=== PATIENT | female | born 2000 | race Caucasian/White ===

== ENCOUNTER 2025-06-01 16:33 | Inpatient (IN) | payer OTHER ==
[~2025-06-01] VITALS: Ht 154.9 cm; Wt 54.9 kg
[~2025-06-01 16:33] MED LIST: METHOCARBAMOL500 MG PO; NOVOLOG100 UNIT/2 SUB-Q; PROPRANOLOL HCL80 MG PO
[2025-06-01 16:49] LABS: MCH 31.9 PG (25.6-32.2); MCHC 33.1 g/dL (32.2-35.5); MCV 96.5 fL (79.4-94.8); RBC 5.39 M/uL (3.93-5.22)
[2025-06-01] MEDS ORDERED: SODIUM CHLORIDE 0.9% 1,000 ML IV PRN ×2 (17:00→17:30)
[2025-06-01 17:09] LABS: ALT (SGPT) 23 U/L (14-59); AST (SGOT) 11 U/L (15-37); GLOMERULAR FILTRATION RATE,EST 63 mL/min (>60); PROTEIN, TOTAL 8.9 g/dL (6.4-8.2); UREA NITROGEN 18 mg/dL (7-18)
[2025-06-01 17:15] LABS: BANDS, MANUAL DIFF 16; LYMPHOCYTES, MANUAL DIFF 15; MONOCYTES, MANUAL DIFF 5; NEUTROPHILS, MANUAL DIFF 64
[2025-06-01] MEDS ORDERED: Insulin Regular 100 Unit/100 Ml Bag IV SCH (17:30)
[2025-06-01] MEDS ORDERED: DEXTROSE 5% - NACL 0.45% 1,000 ML IV SCH (17:30)
[2025-06-01] MEDS ORDERED: INSULIN REGULAR IN 0.9 % NACL 100 ML IV SCH (18:00)
[2025-06-01] MEDS ORDERED: LACTATED RINGER'S 1,000 ML IV ONE ×2 (18:00→23:00)
[2025-06-01] MEDS ORDERED: GLUCAGON,HUMAN RECOMBINANT 1 MG/ML VIAL SUB-Q PRN (18:00)
[2025-06-01] MEDS ORDERED: LACTATED RINGER'S 1,000 ML IV SCH (18:00)
[2025-06-01] MEDS ORDERED: IBLOOD GLUCOSE TEST STRIP 1 EA TEST VI SCH ×2 (18:00→21:00)
[2025-06-01] MEDS ORDERED: DEXTROSE 50% 50 ML SYR IV PRN ×2 (18:00)
[2025-06-01] MEDS ORDERED: ACETAMINOPHEN 325 MG TAB PO PRN (18:00)
[2025-06-01] MEDS ORDERED: IBLOOD GLUCOSE TEST STRIP 1 EA TEST XX PRN (18:00)
[2025-06-01] MEDS ORDERED: DEXTROSE 5% 1,000 ML IV PRN (18:00)
[2025-06-01] MEDS ORDERED: SODIUM BICARBONATE 50 MEQ/50 ML SYR IV SCH (18:15)
[2025-06-01 18:20] LABS: GLOMERULAR FILTRATION RATE,EST 84 mL/min (>60); UREA NITROGEN 19 mg/dL (7-18)
[2025-06-01 20:00] VITALS: BP 126/90
--- NOTE | 2025-06-01 20:00 | NUR ---
TELEPHONE REPORT GIVEN BY ED NURSE, RAYMOND, PATIENT ARRIVED VIA STRETCHER WITH GEAR HOBBER SET UP OPERATOR. PATIENT ABLE TO AMBULATE TO COMMODE FROM STRETCHER. 300ML URINE OUT, CLEAR YELLOW. PATIENT ARRIVED WITH INSULIN GTT IN LEFT AC WITH LR INFUSING. PATIENT ARRIVED WITH HEART MONITOR IN PLACE. ORIENTED TO ROOM, CALL LIGHT AND DEPARTMENT. PATIENT ASSESSMENT COMPLETE AND DOCUMENT. SHE REPORTED 4/10 PAIN IN BACK AND THROAT. PATIENT STATED "MY THROAT HAS BEEN HURTING FROM PUKING SO MUCH RECENTLY" PATIENT HAS A PRODUCTIVE COUGH WITH SMALL AMMOUNTS OF THIN WHITE SPUTUM, SHE STATED "I HAVE BEEN COUGHING THIS UP EVER SINCE I STARTED PUKING, I THINK IT'S FROM MY SORE THROAT". PATIENT IS NOT REQUESTING PAIN MEDICATIONS AT THIS TIME. DURING ADMISSION PATIENT MENTIONED HAVING A HX OF "HOSHIMOTOS AND CRPS" PATIENT HAS TWO VISITORS IN THE ROOM AT THIS TIME. CALL LIGHT AND PERSONAL BELONGINGS ARE WITHIN REACH. PATIENT HAS BEEN CONTINUING TO ASK FOR MULTIPLE WARM BLANKETS, SHE IS AFEBRILE AND STATED "I ALWAYS COLD AND BUNDLED UP AT HOME"
[2025-06-01 20:28] VITALS: BP 125/90
[2025-06-01 21:00] VITALS: BP 130/96
[2025-06-01 22:00] VITALS: BP 136/93
[2025-06-01 22:27] LABS: GLOMERULAR FILTRATION RATE,EST 101.0 mL/min (>60); UREA NITROGEN 15.0 mg/dL (7-18)
[2025-06-01] MEDS ORDERED: SODIUM BICARBONATE 50 MEQ/50 ML VIAL IV ONE (23:00)
[2025-06-02] VITALS (14 sets, daily range): BP systolic 100–145; BP diastolic 61–130
[2025-06-02 00:11] LABS: BLOOD/HGB, URINE TRACE-I (Negative); KETONE, URINE >=80 (Negative); LEUK ESTERASE, URINE NEGATIVE (negative); NITRITE, URINE NEGATIVE (negative)
[2025-06-02 00:16] LABS: EPITHELIAL CELLS, URINE SQUAMOUS 2+ /lpf (0-1+)
[2025-06-02 00:17] LABS: BACTERIA, URINE RARE /hpf (negative); CASTS, URINE GRANULAR 2+ \\lpf; CRYSTALS, URINE NONE SEEN (0-1+); REFLEX CULTURE, URINE No (No)
--- NOTE | 2025-06-02 03:13 | NUR ---
IN TO DRAW BLOOD FROM SALINE LOCK. PT REMAINS SLEEPING DURING BLOOD DRAW, RESP EVEN AND UNLABORED, HR 100'S. BLOOD SUGAR DONE, INSULIN DRIP TITRATED ACCORDINGLY.
[2025-06-02 03:24] LABS: GLOMERULAR FILTRATION RATE,EST 97.0 mL/min (>60); UREA NITROGEN 12.0 mg/dL (7-18)
[2025-06-02] MEDS ORDERED: POTASSIUM CHLORIDE 10 MEQ/100 ML BAG IV SCH (04:00)
[2025-06-02 06:22] LABS: BASOPHILS 0.5 % (0.1-1.2); EOSINOPHILS 0.1 % (0.7-5.8); LYMPHOCYTES 13.6 % (19.3-51.7); MCH 32.7 PG (25.6-32.2); MCHC 36.9 g/dL (32.2-35.5); MCV 88.7 fL (79.4-94.8); MONOCYTES 12.8 % (4.7-12.5); NEUTROPHILS 72.0 % (34.0-71.1); RBC 3.88 M/uL (3.93-5.22)
[2025-06-02 06:33] LABS: ALT (SGPT) 14.0 U/L (14-59); AST (SGOT) 8.0 U/L (15-37); GLOMERULAR FILTRATION RATE,EST 97.0 mL/min (>60); PROTEIN, TOTAL 5.9 g/dL (6.4-8.2); UREA NITROGEN 11.0 mg/dL (7-18)
--- NOTE | 2025-06-02 06:34 | NUR ---
PATIENT LABS INDICATED ANION GAP DECREASING WITH BICARB INCREASING, DR. AUSTIN UPDATED VIA TELEPHONE. ORDERED 1 LITER LR BOLUS AND 1 AMPULE OF BICARB. THIS RN ORDERED MEDICATIONS WITH PRECEPTOR, TIFFANY. POTASSIUM WAS 2.7, 60 MEQ ORDERED PER ELECTROLYTE REPLACEMENT PROTOCOL. CURRENTLY INFUSING BAG 3 OF 6. AM LABS DRAWN BY THIS RN AND SENT. CALL LIGHT AND PERSONAL BELONGINGS ARE WITHIN REACH. TWO VISITORS SLEEPING ON COUCH.
[2025-06-02] MEDS ORDERED: MAGNESIUM SULFATE 2 GM/50 ML BAG IV ONE ×2 (07:00→08:30)
--- NOTE | 2025-06-02 07:12 | NUR ---
REVIEWED LABS AND PLAN OF CARE WITH . ORDERS CHANGED PER VERBAL ORDER; VIEIFED WITH REPEAT BACK.
[2025-06-02] MEDS ORDERED: IBLOOD GLUCOSE TEST STRIP 1 EA TEST VI SCH (08:00)
[2025-06-02] MEDS ORDERED: Insulin Regular, Human 100 UNIT/ML ML SUB-Q SCH (08:00)
--- NOTE | 2025-06-02 08:20 | NUR ---
PT RESTING IN BED AND COMPLAINS OF NAUSEA, PRN ZOFRAN ADMINISTERED PER REQUEST. IV SITE ASSESSED R/T COMPLAINTS OF PAIN, PATENT, SWITCHED K+ INFUSION TO OTHER SITE. PT IS NOT INTERESTED IN BREAKFAST AT THIS TIME, NAUSEATED, SS INSULIN HELD. MOTHER AT BEDSIDE, CALL LIGHT IN REACH.
[2025-06-02] MEDS ORDERED: PANTOPRAZOLE SODIUM 40 MG/10 ML VIAL IV SCH (09:00)
[2025-06-02] MEDS ORDERED: ELECTROLTYTE REPLACEMEMT CCU 1 EACH EA PO/IV SCH (09:00)
--- NOTE | 2025-06-02 09:32 | NUR ---
ROUNDING ON PT - IV SITE PAIN WNL, NO REQUESTS AT THIS TIME. CALL LIGHT IN REACH.
--- NOTE | 2025-06-02 10:03 | NUR ---
PATIENT LAYING IN BED. VITAL SIGNS AND I&OS WERE DONE. CALL LIGHT IS WITHIN REACH AND NO FURTHER NEEDS AT THIS TIME.
--- NOTE | 2025-06-02 10:43 | NUR ---
UR CLINICAL REVIEW: MCG-PER MCG REVIEW MEETS INPT FOR DM WITH NEED FOR IV HYDRATION, INSULIN DRIP AND SERIAL LABS [facility] INPT 06/01/25 @ 1801 ORDER MATCHES REG CLINICALS FAXED TO [facility] FOR AUTH REVIEW DISCHARGE TO HOME WHEN STABLE DC REVIEW 06/03/25
[2025-06-02 11:12] LABS: GLOMERULAR FILTRATION RATE,EST 117.0 mL/min (>60); UREA NITROGEN 10.0 mg/dL (7-18)
[2025-06-02] MEDS ORDERED: PHARMACY RENAL DOSE ADJUSTMENT 1 DOSE MISC PO SCH (12:00)
--- NOTE | 2025-06-02 12:29 | NUR ---
SS INSULIN ADMINISTERED PER EMAR - PT REQUESTING FOOD FROM OUTSIDE HOSPITAL, VERY KNOWLEDGABLE AND TRUSTWORTHY ON CARB COUNTING. PT AGREES TO 60G CARB AND WILL COMMUNICATE HER INTAKE.
--- NOTE | 2025-06-02 13:44 | NUR ---
SLEEPING AT THIS TIME. SPOKE WITH RN. PATIENT'S MOTHER HAS BEEN IN ROOM AND VERY ATTENTIVE. NO KNOWN CM NEEDS. PATIENT WILL DC TO HOME WHEN MEDICALLY READY.
--- NOTE | 2025-06-02 14:22 | NUR ---
PT WITHOUT NAUSEA WITH FOOD INTAKE. PT REQUESTS TO REMAIN ON Q2 CHECKS AND REQUESTS TO INCREASE SS TO HIGH DOSE TO BETTER CONTROL HER CBGS. SHE STATES SHE WOULD LIKE TO BE UNDER 200, CLOSER TO HER BASELINE OF 150-180. PLAN REVIEWED WITH MD. CHANGES IN ORDERS ENTERED. LABS DRAWN FOR RIGHT AC SITE WITHOUT DIFFICULTY. PT IN GOOD SPIRITS AND RESTING BETWEEN CARES.
[2025-06-02 14:52] LABS: GLOMERULAR FILTRATION RATE,EST 108.0 mL/min (>60); UREA NITROGEN 10.0 mg/dL (7-18)
[2025-06-02] MEDS ORDERED: POTASSIUM CHLORIDE 40 MEQ,LIDOCAINE HCL 1% 40 MG in DEXTROSE 5% 250 ML IV ONE (15:15)
[2025-06-02] MEDS ORDERED: HYDROXYZINE PAM25 MG PO (16:48)
--- NOTE | 2025-06-02 16:48 | NUR ---
MED REC COMPLETE
--- NOTE | 2025-06-02 18:15 | NUR ---
CBG 161, PT NOT PLANNING TO EAT DINNER UNTIL CLOSER TO 8PM WITH BOYFRIEND, REQUESTS TO HOLD SS AT THIS TIME TO PREVENT TOO LOW.
--- NOTE | 2025-06-02 20:00 | NUR ---
EVENING ASSESSMENT COMPLETE AND DOCUMENTED IN CHART, RECEIVED REPORT FROM MERCEDES MCNALLY. IV POTASSIUM INFUSING IN RIGHT AC, PATIENT RATED 4/10 PAIN IN IV. HOT PACK GIVEN WITH 1 HOUR LEFT OF INFUSION. PATIENT DENIED OFFER TO SLOW DOWN THE INFUSION OR DILUTE IT WITH IV FLUIDS RUNNING CONCURRENTLY. PATIENT EATING DINNER BROUGHT TO HOSPITAL BY HER BOYFRIEND, SHE COUNTED IT 15 CARBS. CBG WAS 157, TREATED WITH 5 UNITS REG. INSULIN. PATIENT REQUESTED HER EARS BE CHECKED, SHE STATED "IT FEELS LIKE I AM UNDER WATER AND I CANNOT HEAR WELL". PT ENDORSED INCREASED CONGESTION AND SINUS IRRITATION DUE TO "CRPS FLARE-UP" PATIENT OFFERED WARM PACK AND COMMUNICATED SHE WOULD CALL IF IT WORSENED. CALL LIGHT AND PERSONAL BELONGINGS ARE WITHIN REACH. BOYFRIEND SLEEPING ON THE COUCH.
--- NOTE | 2025-06-02 21:21 | NUR ---
IV K+ REPLACEMENT FINISHED. IV SITE IS SORE PER PATIENT. FLUSHED EASILY AND HAS BLOOD RETURN. WARM PACK IN PLACE. PATIENT DENIED OTHER NEEDS. CALL LIGHT IN REACH.
--- NOTE | 2025-06-02 22:00 | NUR ---
IV POTASSIUM FINISHED INFUSING, LABS DRAWN FROM RIGHT AC IV W/O USE OF TOURNIQUET. PATIENT TOLERATED WELL. POTASSIUM LAB RESULT WAS 3.0, 40 MEQ OF PO POTASSIUM ADMINISTERED. CBG 204, 5 UNITS REGULAR INSULIN GIVEN IN THE BACK OF THE RIGHT ARM. PATIENT EDUCATED ON ROOM SAFETY, AND HOW TO DETACH MONITOR TO USE THE RESTRROM. PATIENT ALLOWED TO BE INDEPENDENT IN THE ROOM. PATIENT HAS ONE VISITOR AT THE BEDSIDE. CALL LIGHT AND PERSONAL BELONGINGS WITHIN REACH. CHEESE STICKS AND GATORADE IN FRIDGE WITH PATIENT LABEL.
[2025-06-02 22:28] LABS: GLOMERULAR FILTRATION RATE,EST 126.0 mL/min (>60); UREA NITROGEN 8.0 mg/dL (7-18)
[2025-06-02] MEDS ORDERED: POTASSIUM CHLORIDE 10 MEQ TABCR PO ONE (22:45)
[2025-06-03 00:01] VITALS: BP 121/87
--- NOTE | 2025-06-03 00:15 | NUR ---
PATIENT'S BLOOD SUGAR CHECKED, RESULTS WERE 164. PATIENT REQUESTED "30 MINUTES TO RECHECK THE BLOOD SUAGR AND THEN DOSE THAT RESULT. I JUST ATE MY SECOND DINNER, I DON'T WANT TO BE CHASING A HIGH BLOOD SUGAR"THIS NURSE COMMUNICATED THAT THAT WAS FINE IF THAT MADE HER FEEL MORE COMFORTABLE. WE THEN DISCUSSED THE TYPES OF INSULIN AND HOW LONG UNTIL THEY START WORKING. CALL LIGHT AND PERSONAL BELONGINGS ARE WITHIN REACH. PATIENT DENIES FURTHER NEEDS AT THIS TIME.
--- NOTE | 2025-06-03 02:00 | NUR ---
PATIENT RESTING PEACEFULLY WTH EYES CLOSED. TIFFANY MCNALLY GAVE 5 UNITS INSULIN FOR CBG.
[2025-06-03 02:02] VITALS: BP 97/62
[2025-06-03 03:00] VITALS: BP 100/66
[2025-06-03 04:00] VITALS: BP 104/67
--- NOTE | 2025-06-03 04:17 | NUR ---
PATIENT LAYING IN BED RESTING WITH EYES CLOSED. CBG 112, NO SSI GIVEN AT THIS TIME. PT WORRIED ABOUT BECOMING HYPOGLYCEMIC WHEN SHE SLEEPS REQUESTED "2 STARBURSTS SO I CAN GO BACK TO SLEEP AND NOT GET TOO LOW" APPROXIMATELY 8 CARBS. PATIENT REQUESTED A CONTROLS ENGINEER FOR HER PHONE, TWO CHARGERS USED NONE WORKED. PATIENT COMMUNICATED HER FAMILY WOULD BE BACK IN THE MORNING TO GIVE HER A CONTROLS ENGINEER. PATIENT DENIES FURTHER NEEDS AT THIS TIME. ICE WATER REFILLED.
[2025-06-03 06:10] VITALS: BP 107/80
[2025-06-03 06:31] LABS: GLOMERULAR FILTRATION RATE,EST 127.0 mL/min (>60); UREA NITROGEN 11.0 mg/dL (7-18)
[2025-06-03] MEDS ORDERED: POTASSIUM CHLORIDE 10 MEQ TABCR PO ONE (07:00)
[2025-06-03 08:02] VITALS: BP 105/73
--- NOTE | 2025-06-03 09:08 | NUR ---
RN ROUNDING WITH MD IN ROOM - PT AGREES WITH PLAN TO DC HOME LATER TODAY PENDING ON LABS/CBG CHECKS. ALL QUESTIONS ANSWERED. WILL LOWER TO MS STATUS HOUSE CONVIENENCE.
--- NOTE | 2025-06-03 10:46 | NUR ---
LABS DRAWN FROM RIGHT AC IV SITE. PT TEARFUL RESTING IN BED, ANXIETY R/T LAB DRAWS EXPRESSED. PTS BOYFRIEND AT BEDSIDE. 100% BREAKFAST EATEN OF JERKY, CHEESE STICK AND BITE OF SCRAMBLED EGGS. NO CARBS PER PT. NOW EATING BREAKFAST BURRITO. NO NAUSEA.
[2025-06-03 10:55] LABS: GLOMERULAR FILTRATION RATE,EST 127.0 mL/min (>60); UREA NITROGEN 12.0 mg/dL (7-18)
--- NOTE | 2025-06-03 12:32 | NUR ---
MD IN ROOM TO UPDATE PT ON DC HOME PLAN. REPEAT BMP WNL AND ADEQUATE CONTROL OF BLOOD GLUCOSE ACHIEVED AT LAST CHECK. PT AGREES WITH PLAN, AMBULATING IN ROOM TO GATHER BELONGINGS.
--- NOTE | 2025-06-03 13:35 | NUR ---
PT STATES UNDERSTANDING OF DC HOME INSTRUCTIONS - PHONE IS NOT SYNCING WITH INSULIN PUMP BECAUSE OF UPDATE ON PHONE, 3 UNITS ADMINISTERED FOR COVERAGE PRIOR TO LEAVING PER PT REQUEST BASED OFF 1200 CBG. PT PLANS TO FOLLOW UP WITH PCP NEXT WEEK. ENCOURAGED TO CALL WITH ANY PROBLEMS OR CONCERNS. ALL BELONGINGS TAKEN WITH PT.
== END 2025-06-03 13:20 | disposition home or self-care (01) | DRG 639 ==
LOC: ED 16:33 → CCU 18:01
PROVIDERS: Emergency Medicine; ADMIT Internal Medicine; ATTEND Internal Medicine
DX: E10.10 Type 1 diabetes mellitus with ketoacidosis without coma (principal); D72.829 Elevated white blood cell count, unspecified; E87.8 Other disorders of electrolyte and fluid balance, not elsewhere classified; Z79.4 Long term (current) use of insulin; Z79.899 Other long term (current) drug therapy; Z98.818 Other dental procedure status; Z98.890 Other specified postprocedural states; Z88.8 Allergy status to other drugs, medicaments and biological substances
CPT/HCPCS: 36415; 36592; 80048; 80053; 81001; 82010; 82803; 83690; 83735; 84703; 85025; A9270; J1815; J2405; J2470; J3475; J3480; J3490; J7030; J7042; J7060; J7121